=== PATIENT | female | born 1970 | race Caucasian/White ===

== ENCOUNTER → 2020-09-15 | Outpatient (CLI) | payer BC ==
--- NOTE | 2020-09-15 12:09 | MM ---
Reason for exam: screening (asymptomatic). Baseline mammogram. Physical Findings: Nurse did not find any significant physical abnormalities on exam. MG 3D Screening Mammo W/Cad Bilateral CC and MLO view(s) were taken. The breast tissue is heterogeneously dense. This may lower the sensitivity of mammography. Small heterogeneous group of microcalcifications adjacent to a spiculated 1cm mass. Distortion lower inner right breast zone B. These results were verbally communicated with the patient and result sheet given to the patient on 09/15/20. ASSESSMENT: Incomplete: need additional imaging evaluation, BI-RAD 0 RECOMMENDATION: Special view mammogram of both breasts.
--- NOTE | 2020-09-15 12:11 | MM ---
Reason for exam: additional evaluation requested from abnormal screening. Physical Findings: Breast exam preformed at baseline screening. MG 3D Work Up W/Cad YOGESH Bilateral LM view(s) were taken. Spot compression CC and spot compression MLO view(s) were taken of the right breast. CC with magnification and LM with magnification view(s) were taken of the left breast. The breast tissue is heterogeneously dense. This may lower the sensitivity of mammography. Left breast: spiculated 9mm mass upper outer quadrant 8cm from nipple. Adjacent group of pleomorphic calcifications. Right breast: Asymmetric density lower half of right breast 4.6cm from nipple. These results were verbally communicated with the patient and result sheet given to the patient on 09/15/20. ASSESSMENT: Incomplete: need additional imaging evaluation, BI-RAD 0 RECOMMENDATION: Ultrasound of both breasts. Manage patient on a clinical basis.
--- NOTE | 2020-09-15 12:15 | USB ---
Reason for exam: additional evaluation requested from abnormal screening. US Breast Workup Limited YOGESH Technologist: Umm Means Right limited breast ultrasound including focal area of concern, retroareolar and axilla demonstrates a 0.6 x 0.6 x 0.3cm mixed lesion at 4 o'clock, ultrasound core biopsy recommended. Left limited breast ultrasound including focal area of concern, retroareolar and axilla demonstrates a 0.5 x 0.4 x 0.2cm cystic lesion at 2 o'clock and a 0.8 x 0.8 x 0.4cm solid, vascular lesion at 3 o'clock, biopsy recommended. Left two site stereotactic core biopsy mass and calcifications. These results were verbally communicated with the patient and result sheet given to the patient on 09/15/20. ASSESSMENT: Highly suggestive of malignancy, BI-RAD 5 Suspicious, BI-RAD 4 abnormality in the right breast. Left breast finding is highly suggestive of malignancy, BI-RAD 5. RECOMMENDATION: Ultrasound core biopsy of the right breast. Stereotactic core biopsy of the left breast. (two sites on left breast) Called Dr. Brown's office with mammographic findings and has scheduled an appointment for the patient for 09/17/20 at 7:[address] Lugo. Ultrasound core biopsy scheduled for 10/07/20 at 10:30. Stereotactic core biopsy scheduled for 10/14/20 at 8:00. PRELIMINARY REPORT CALLED AND FAXED TO DR. LUGO ON 09/15/20.
== END | disposition home or self-care (01) ==
LOC: RADMAMWWP 07:02
PROVIDERS: ATTEND Obstetrics & Gynecology
DX: Z12.31 Encounter for screening mammogram for malignant neoplasm of breast (principal); N63.21 Unspecified lump in the left breast, upper outer quadrant; N60.02 Solitary cyst of left breast
CPT/HCPCS: 77062; 77063; 77066; 77067

== ENCOUNTER → 2020-09-17 | Outpatient (CLI) | payer BC ==
[2020-09-17 07:30] VITALS: BP 122/84; PULSE 91; RESP 16; TEMP 98.2
--- NOTE | 2020-09-17 08:08 | P.GSHP ---
History of Present Illness H&P Date: 09/17/20 Chief Complaint: abnormal mammogram and ultrasound both breast Kenyetta is a 49-year-old white female seen in consultation for Dr. Shady Núñez regarding bilateral mammographic abnormalities in her breast. She underwent a bilateral mammogram and [id number]. This revealed small head or rigidity escape of microcalcifications adjacent to spiculated 1 cm mass in the left breast. In the right breast there was some asymmetry noted. She subsequently underwent a diagnostic study of the breast which revealed in the left breast a spiculated mass in the upper outer quadrant as well as a group of pleomorphic calcifications. In the right breast there was some asymmetry noted. An ultrasound of both breasts were performed. Ultrasound in the right revealed a mixed lesion at the 4 o'clock position and on the left revealed the spiculated mass lesion. The recommendation as per radiology was for ultrasound core biopsy of the right breast, and after review with radiology stereotactic core biopsy of 2 sites in the left breast. The patient does not feel any lumps masses or nodules of concern in either breast. She is however complaining of bilateral breast pain. Patient states that she has been having the discomfort for several months. She believes it is most likely perimenopausal in nature. Her last menstrual period was approximately 3 months ago. She is not complaining of any nipple discharge or skin changes. The pain is deep bruise-like discomfort and is only present with palpation. She is not complaining of any recent infection or trauma in the breast. She has never had surgery on her breasts before. This is her first mammogram. The patient was having perimenopausal symptoms and was considering bioidentical hormone therapy. She was recommended to undergo a mammogram and this is the reason the mammogram was performed. Caffeine: 2 cups of coffee per day Nicotine: Negative Chocolate: Daily hormones: Is not using any at the present time Family history: Father: Lung cancer Hormonal history: Menarche: 12 , age at first : 26, breast fed: no periods irregular for the last 3 months BDP: no Surgical history: spleenectomy: trauma right ovary removed; cyst Medical History: none Social History: Nicotine: Former smoker stopped 15 years ago Alcohol: Rare Drugs: negative - Constitutional Constitutional: Denies chills, Denies fever - EENT Eyes: denies blurred vision, denies pain Ears: bilateral: decreased hearing, deny: tinnitus Ears, nose, mouth and throat: Denies headache, Denies sore throat - Breasts Breasts: bilateral: as per HPI - Cardiovascular Cardiovascular: Denies chest pain, Denies shortness of breath - Respiratory Respiratory: Denies cough, Denies 7 - Gastrointestinal Gastrointestinal: Denies abdominal pain, Denies diarrhea, Denies nausea, Denies vomiting - Genitourinary (Female) Genitourinary: Denies dysuria, Denies hematuria - Menstruation Menstruation: Reports cycle variable - Musculoskeletal Musculoskeletal: Denies myalgias - Integumentary Integumentary: Denies pruritus, Denies rash - Neurological Neurological: Denies numbness, Denies weakness - Psychiatric Psychiatric: Denies anxiety, Denies depression - Endocrine Endocrine: Denies fatigue, Denies weight change - Hematologic/Lymphatic Comment: none - Allergic/Immunologic Allergic/Immunologic: Reports as per HPI Past Medical History Past Medical History: No Reported History History of Any Multi-Drug Resistant Organisms: None Reported Additional Past Surgical History / Comment(s): Splenectomy 1988; right oophorectomy 2015 Past Anesthesia/Blood Transfusion Reactions: No Reported Reaction Past Psychological History: No Psychological Hx Reported Smoking Status: Former smoker Past Alcohol Use History: Rare Additional Past Alcohol Use History / Comment(s): Started smoking at age 21, stopped smoking at age 31 Past Drug Use History: None Reported Medications and Allergies Home Medications Medication Instructions Recorded Confirmed Type No Known Home Medications 09/17/20 09/17/20 History Allergies Allergy/AdvReac Type Severity Reaction Status Date / Time codeine Allergy Rash/Hives Unverified 09/17/20 07:23 Surgical - Exam Vital Signs Temp Pulse Resp BP Pulse Ox 98.2 F 91 16 122/84 100 09/17/20 07:25 09/17/20 07:25 09/17/20 07:25 09/17/20 07:25 09/17/20 07:25 BMI 26.6 - General well developed, well nourished, no distress - Eyes normal ocular movement - ENT no hearing loss, no congestion - Neck no masses, trachea midline - Respiratory normal expansion, normal respiratory effort, clear to auscultation - Cardiovascular Rhythm: regular Heart Sounds: normal: S1, S2 - Abdomen Abdomen: soft - Integumentary normal turgor - Neurologic no disoriented, no combative - Musculoskeletal normal gait, normal posture - Psychiatric oriented to time, oriented to person, oriented to place, speech is normal, memory intact breast exam: BRA: 38C inspection: Grade 2 ptosis bilaterally Palpation: right breast: Dense breast tissue, cystic breast changes, no dominant masses or nodules of concern Right axilla: No adenopathy of concern Left breast: Dense breast tissue, fibrocystic breast changes, no discrete dominant mass or nodule of concern appreciated Left axilla: No adenopathy of concern Results Bilateral mammogram and ultrasound reviewed with Dr. Childers Assessment and Plan Assessment: Impression: 1. Bilateral control radiographic abnormalities/recommend right breast ultrasound core biopsy left breast stereotactic core biopsy of 2 sites 2. Perimenopausal with mastodynia 3. Prior splenectomy Plan: 1. Ultrasound core biopsy right breast, stereotactic core biopsy 2 sites left breast 2. Follow up after results of biopsy 3. Mastodynia most likely related to hormonal changes secondary to menopause have discussed lifestyle modifications 4. At this time I would wait on hormonal supplementation until results of the biopsy 5. genetic testing Cc: Dr. Núñez, Dr. Brown
== END ==
LOC: WWCWWP 07:12
PROVIDERS: ATTEND Surgery
DX: N63.21 Unspecified lump in the left breast, upper outer quadrant (principal); N64.4 Mastodynia; N64.89 Other specified disorders of breast; Z87.891 Personal history of nicotine dependence; Z90.81 Acquired absence of spleen

== ENCOUNTER → 2020-10-14 | Day surgery (SDC) | payer BC ==
[2020-10-14 07:38] VITALS: RESP 16
--- NOTE | 2020-10-14 10:22 | USB ---
EXAMINATION TYPE: US biopsy breast VAD bilateral DATE OF EXAM: 10/14/2020 CLINICAL HISTORY: R92.8 Abnormal Imaging. TECHNIQUE: Ultrasound guided core biopsy of bilateral breasts. COMPARISON: 09/15/2020 FINDINGS: The procedure of ultrasound guided core biopsy was explained to the patient. Benefits, alternatives, and risks were discussed. An informed consent was then obtained. The patient was placed in supine positioning for imaging and for the procedure. The overlying skin was prepped and draped in usual sterile fashion. Lidocaine buffered with bicarbonate was used as anesthetic into the skin and subcutaneous tissue up to area of concern in the left breast at 3:00, zone BC. A skin mariano was made with a surgical scalpel.. Under ultrasound guidance, a Celero biopsy gun device was used to obtain 3 core samples. Following this, a biopsy clip was placed in lesion. A nodule at 4:00 at zone a and the right breast was sonographically identified. The overlying skin was prepped and draped in usual sterile fashion. Lidocaine buffered with bicarbonate was used as anesthetic into the skin and subcutaneous tissue up to area of concern in the right breast at 4:00, zone a. A skin mariano was made with surgical scalpel. Under ultrasound guidance, a Celero biopsy gun device was used to obtain 4 core samples. Following this, a biopsy clip was placed in lesion. The patient tolerated the procedure well without any immediate complication. The patient was kept in the radiology department for short stay after the procedure and then discharged home in stable condition. IMPRESSION: 1. Successful bilateral ultrasound-guided breast biopsies. Pathology results will follow. Pathology Results: Malignant A. 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 See Surgical Pathology Cancer Case Summary and comment. B. RIGHT BREAST, CORE BIOPSY: Fibrocystic change with apocrine metaplasia, focal microcalcification, adenosis and columnar cell change/hyperplasia. Focal usual ductal hyperplasia. Recommendation Surgical consult of the left breast. Follow up mammogram of the right breast in 6 months. GEOVANNYD
--- NOTE | 2020-10-14 10:27 | MM ---
BILATERAL DIGITAL DIAGNOSTIC POSTPROCEDURAL MAMMOGRAM REASON FOR EXAMINATION: Bilateral ultrasound guided biopsies with clips left in place COMPARISON: Ultrasound same date. Technique: Bilateral. craniocaudal and mediolateral oblique 2-D views were obtained digitally. FINDINGS: C (heterogeneously dense) The breasts are heterogeneously dense, which may obscure small masses. Post procedural clips are seen at the 4:00 region of the right breast at zone a 4 cm from the nipple. Post procedural biopsy clip at the left breast at 3:00, 7 cm from the nipple. IMPRESSION: 1. Biopsy marker clips are seen in each breast, respectively. Awaiting pathology results. Procedure related imaging
[2020-10-14 11:06] VITALS: BP 134/87; PULSE 71; TEMP 97.6
== END ==
LOC: RADMAMWWP 07:18
PROVIDERS: ATTEND Surgery
DX: C50.912 Malignant neoplasm of unspecified site of left female breast (principal); N60.81 Other benign mammary dysplasias of right breast; N62 Hypertrophy of breast; Z88.5 Allergy status to narcotic agent
CPT/HCPCS: 88305; 88342; 88341; 77066; 19083; 19084; A4648; J2001

== ENCOUNTER → 2020-10-21 | Outpatient (CLI) | payer BC ==
[2020-10-21 09:12] VITALS: BP 147/86; PULSE 58; RESP 16; TEMP 98.1
--- NOTE | 2020-10-21 10:28 | P.PN ---
Subjective Progress Note Date: 10/21/20 Principal diagnosis: Invasive ductal carcinoma left breast Kenyetta is a 50-year-old white female status post bilateral core biopsy performed on . Left breast revealed grade 2 invasive ductal carcinoma in situ associated with intermediate grade DCIS the right breast revealed fibrocystic change with apocrine metaplasia, focal microcalcification, adenosis, and columnar cell hyperplasia. The patient's radiographs were reviewed with Dr. Miner and a additional area of microcalcifications approximately 3-4 mm from the area biopsied was also identified. The patient is scheduled for bilateral MRI. The total length of the lesion is approximately 2 cm. An Oncotype is going to be sent. The lesion by verbal report is ER/NM positive and HER-2/honey negative. This would be a stage IA invasive ductal breast cancer. The patient tolerated the biopsy without difficulty. She states that her breast was sore following the procedure but this is improved. Objective - Vital Signs Vital signs: Vital Signs Temp 98.1 F 10/21/20 09:00 Pulse 58 L 10/21/20 09:00 Resp 16 10/21/20 09:00 BP 147/86 10/21/20 09:00 Pulse Ox 100 10/21/20 09:00 Intake & Output 10/20/20 10/21/20 10/21/20 18:59 06:59 18:59 Weight 74.843 kg - Constitutional General appearance: Present: average body habitus - EENT Eyes: Present: EOMI - Integumentary Integumentary Comment(s): Biopsy sites clean and dry with minimal ecchymosis no evidence of infection or hematoma Assessment and Plan Assessment: Impression: 1. Left breast invasive ductal carcinoma stage I a 2. Fibrocystic changes right breast 3. Patient status post splenectomy Plan: 1. Oncotype DX to be ordered 2. Awaiting genetic testing 3. Presentation of case at tumor board 4. Bilateral breast MRI Surgical options were discussed with the patient. These include lumpectomy plus radiation, mastectomy plus or minus reconstruction. They also include sentinel node biopsy possible axillary node dissection. Risks and benefits of these procedures were discussed in detail with the patient and her . Additionally the need for radiation therapy and medical oncology were discussed with the patient and her . At this time they are going to meet with Dr. Boggs from radiation oncology. Encounter: 1 hour 15 minutes CC: Dr. Brown, Dr. Núñez
== END ==
LOC: WWCWWP 08:43
PROVIDERS: ATTEND Surgery
DX: C50.911 Malignant neoplasm of unspecified site of right female breast (principal); N60.11 Diffuse cystic mastopathy of right breast; Z90.81 Acquired absence of spleen; Z17.0 Estrogen receptor positive status [ER+]; Z88.5 Allergy status to narcotic agent

== ENCOUNTER → 2020-11-01 | Outpatient (CLI) | payer BC ==
--- NOTE | 2020-11-03 09:24 | BMR ---
EXAMINATION TYPE: MR breast BILAT wo/w con DATE OF EXAM: 11/01/2020 COMPARISON: Bilateral 3-D screening mammogram September 15, 2020 BI-RADS 0. Bilateral diagnostic 3-D mamm ogram same day BI-RADS 0. Diagnostic bilateral breast ultrasound same day BI-RADS 5 left breast. BI-R ADS 4 right breast HISTORY: Breast cancer on ultrasound-guided biopsy October 14, 2020 left breast invasive ductal carcinoma . Right breast benign biopsy October 14, 2020 TECHNIQUE: A series of fat and water weighted images in the long and short axis views of both breasts are obtained in conjunction with dynamic contrast MRI with subtraction technique. The patient was i njected with 7 mL intravenous Gadavist gadolinium contrast. Three-dimensional and additional postpr ocessing imaging is created on independent workstation and reviewed during official interpretation of this study. FINDINGS: Heterogeneously dense fibroglandular tissue bilaterally is redemonstrated. Coronal T2 weighted images show normal bilateral axillary lymph nodes. Axial T2-weighted images show no significant cysts or fluid collections. Delayed dynamic postcontrast imaging shows no suspicious internal mammary adenopathy. Dynamic postcon trast imaging shows severe bilateral background enhancement which is noted to lower sensitivity. With regards to the right breast. No abnormal skin thickening is seen. No pathologic enhancement or e nhancing masses are clearly identified. Artifact from biopsy clip in the slightly medial and inferior anterior to middle noted image 296 series 801. No concerning enhancement or enhancing masses at this level. The chest wall is intact. Diffuse glandular benign progressive enhancement noted. With regards to the left breast. There is artifact from biopsy clip seen image 346 series 801 in the middle to posterior depth outer portion 3:00 level. Just superior and medial to this adjacent to clip there is a roughly 6 mm lobulated enhancing lesion corresponding to ultrasound biopsy proven maligna ncy 3:00 position left breast. No additional pathologic enhancement or enhancing masses. Background s evere granular benign progressive enhancement noted. Chest wall is intact. IMPRESSION: Some limitation due to severe background enhancement. No MRI evidence for invasive malign trip in the right breast. Biopsy-proven cancer left breast. No multicentric malignancy identified. BI-RADS 2 benign findings right breast. BI-RADS 6 biopsy-proven cancer left breast. Recommendation: Surgical follow-up.
== END | disposition home or self-care (01) ==
LOC: RADMRIMAIN 20:44
PROVIDERS: ATTEND Surgery
DX: C50.912 Malignant neoplasm of unspecified site of left female breast (principal)
CPT/HCPCS: 77049; C8937; A9585

== ENCOUNTER → 2020-11-04 | Outpatient (CLI) | payer BC ==
[2020-11-04 12:35] VITALS: BP 127/85; PULSE 72; TEMP 97.9
--- NOTE | 2020-11-04 12:57 | P.PN ---
Subjective Progress Note Date: 11/04/20 Principal diagnosis: Left breast stage IA invasive ductal carcinoma Kenyetta is a 49-year-old white female seen in consultation for Dr. Shady Núñez regarding bilateral mammographic abnormalities in her breast. She underwent a bilateral mammogram and [id number]. This revealed small head or rigidity escape of microcalcifications adjacent to spiculated 1 cm mass in the left breast. In the right breast there was some asymmetry noted. She subsequently underwent a diagnostic study of the breast which revealed in the left breast a spiculated mass in the upper outer quadrant as well as a group of pleomorphic calcifications. In the right breast there was some asymmetry noted. An ultrasound of both breasts were performed. Ultrasound in the right revealed a mixed lesion at the 4 o'clock position and on the left revealed the spiculated mass lesion. The recommendation as per radiology was for ultrasound core biopsy of the right breast, and after review with radiology stereotactic core biopsy of 2 sites in the left breast. The patient does not feel any lumps masses or nodules of concern in either breast. She is however complaining of bilateral breast pain. Patient states that she has been having the discomfort for several months. She believes it is most likely perimenopausal in nature. She is not complaining of any nipple discharge or skin changes. The pain is deep bruise-like discomfort and is only present with palpation. She is not complaining of any recent infection or trauma in the breast. She has never had surgery on her breasts before. This is her first mammogram. The patient was having perimenopausal symptoms and was considering bioidentical hormone therapy. She was recommended to undergo a mammogram and this is the reason the mammogram was performed. Bilateral breast core biopsies were performed on 520 721. Left breast revealed invasive ductal carcinoma grade 2 which was ER/OK positive HER-2/honey negative. Right breast core biopsy on the same date revealed fibrocystic change with apocrine metaplasia. The patient subsequently underwent a Oncotype DX test the score was 24 this lady's a 10% risk of distant recurrence at 9 years and group B average absolute chemotherapy benefit of less than 1%. She also underwent g enetic testing which was negative. She underwent a bilateral breast MRI which revealed only the area of concern in the left breast. The disease was not noted to be multifocal nor was it noted to have anything of concern in the right breast. Caffeine: 2 cups of coffee per day Nicotine: Negative Chocolate: Daily hormones: Is not using any at the present time Family history: Father: Lung cancer Hormonal history: Menarche: 12 , age at first : 26, breast fed: no periods irregular for the last 3 months BDP: no Surgical history: spleenectomy: trauma right ovary removed; cyst Medical History: none Social History: Nicotine: Former smoker stopped 15 years ago Alcohol: Rare Drugs: negative - Constitutional Constitutional: Denies chills, Denies fever - EENT Eyes: denies blurred vision, denies pain Ears: bilateral: decreased hearing, deny: tinnitus Ears, nose, mouth and throat: Denies headache, Denies sore throat - Breasts Breasts: bilateral: as per HPI - Cardiovascular Cardiovascular: Denies chest pain, Denies shortness of breath - Respiratory Respiratory: Denies cough - Gastrointestinal Gastrointestinal: Denies abdominal pain, Denies diarrhea, Denies nausea, Denies vomiting - Genitourinary (Female) Genitourinary: Denies dysuria, Denies hematuria - Menstruation Menstruation: Reports cycle variable - Musculoskeletal Musculoskeletal: Denies myalgias - Integumentary Integumentary: Denies pruritus, Denies rash - Neurological Neurological: Denies numbness, Denies weakness - Psychiatric Psychiatric: Denies anxiety, Denies depression - Endocrine Endocrine: Denies fatigue, Denies weight change - Hematologic/Lymphatic Comment: none - Allergic/Immunologic Allergic/Immunologic: Reports as per HPI Objective - Vital Signs Vital signs: Vital Signs Temp 97.9 F 11/04/20 12:30 Pulse 72 11/04/20 12:30 Resp BP 127/85 11/04/20 12:30 Pulse Ox 99 11/04/20 12:30 Intake & Output 11/03/20 11/04/20 11/04/20 18:59 06:59 18:59 Weight 74.843 kg - Exam BMI 27.5 - Constitutional General appearance: Present: average body habitus - EENT Eyes: Present: EOMI ENT: Present: hearing grossly normal - Neck Neck: Present: normal ROM - Respiratory Respiratory: bilateral: CTA - Cardiovascular Heart sounds: normal: S1, S2 - Integumentary Integumentary: Present: normal turgor - Musculoskeletal Musculoskeletal: Present: gait normal - Psychiatric Psychiatric: Present: A&O x's 3, appropriate affect, intact judgment & insight - Additional findings Additional findings: Breast examination: Inspection: Grade 2 ptosis bilaterally Operation: Right breast: Multiple positional exam fibrocystic changes, no dominant masses or nodules of concern Right axilla: No adenopathy of concern Left breast: Multiple positional exam fibrocystic changes, no dominant masses or nodules of concern Left axilla: No adenopathy of concern Assessment and Plan Assessment: Impression: 1. Left breast stage IA invasive ductal carcinoma 2. Fibrocystic breast changes 3. Bilateral grade 2 ptosis 4. Oncotype DX 24 5. Bilateral breast MRI no additional areas of concern in either breast 6. Genetic testing negative The above was discussed with the patient, her , and her daughter. The patient would like to proceed with left breast lumpectomy, she is not interested in a mastopexy. We will do an onco-plastic tissue transfer. She will have sentinel node biopsy and possible axillary node dissection. Plan: 1. Presentation of case at tumor board 2. Left breast needle localization area bracketed as there are some calcifications present as well, excisional lumpectomy, sentinel node injection, sentinel node biopsy, possible axillary node dissection, possible bronchoplasty tissue transfer
== END ==
LOC: WWCWWP 11:48
PROVIDERS: ATTEND Surgery
DX: C50.412 Malignant neoplasm of upper-outer quadrant of left female breast (principal); N60.11 Diffuse cystic mastopathy of right breast; N60.12 Diffuse cystic mastopathy of left breast; N64.81 Ptosis of breast; Z17.0 Estrogen receptor positive status [ER+]; Z87.891 Personal history of nicotine dependence; Z88.5 Allergy status to narcotic agent

== ENCOUNTER 2020-11-30 07:02 | Day surgery (SDC) | payer BC ==
[2020-11-29 08:59] VITALS: BMI 27.4
[~2020-11-30 07:02] MED LIST: DEXAMETHASONE SOD PHOSPHATE 4 MG/ML 1 ML VIAL IV ONE; HEPARIN SODIUM,PORCINE/PF 5,000 UNIT/0.5 ML SYRINGE SQ PRN; LACTATED RINGERS 1,000 ML IV SCH; LIDOCAINE 1% (10MG/ML) FOR IV START INTRADERMA PRN; ONDANSETRON 4 MG/2 ML VIAL IVP ONE; Pre Op ABX Message 1 EACH MISC MISCELLANE ONE; SCOPOLAMINE 1.5MG/72HR PATCH TRANSDERM ONE; fentaNYL (PF) 50 MCG/ML 2 ML AMP IV PRN
[2020-11-30] MEDS ORDERED: ALPRAZolam 0.5 MG TAB PO STA (07:59)
[2020-11-30] MEDS ORDERED: LIDOCAINE 1% INJ 10MG/ML (20 ML MDV) SQ ONE (08:38)
--- NOTE | 2020-11-30 09:09 | P.NAPBC ---
NAPBC Queries - NAPBC Queries Was patient's case review presented at [facility] tumor board? If no, comment.: Yes Was patient's pathology reviewed at [facility]? If no, comment.: Yes Was breast conservation surgery offered? If no, comment.: Yes Was sentinel node biopsy offered? If no, comment.: Yes Was diagnosis confirmed by percutaneous core biopsy? If no, comment.: Yes Is patient mastectomy patient?: No Was a preop referral to reconstructive surgeon offered?: No Clinical Stage: stage IA
[2020-11-30] MEDS ORDERED: ROCURONIUM 10 MG/ML (5 ML VIAL) IV ONE (09:33)
[2020-11-30] MEDS ORDERED: PROPOFOL 10 MG/ML 20 ML VIAL IV ONE (09:33)
[2020-11-30] MEDS ORDERED: SUCCINYLCHOLINE CHLORIDE 100 MG/5 ML SYR IV ONE (09:33)
[2020-11-30] MEDS ORDERED: HYDROmorphone (PF) 1 MG/ML ONE (09:33)
[2020-11-30] MEDS ORDERED: fentaNYL (PF) 50 MCG/ML 2 ML AMP ONE (09:33)
[2020-11-30] MEDS ORDERED: MIDAZOLAM 2 MG/2 ML VIAL ONE (09:33)
[2020-11-30] MEDS ORDERED: LIDOCAINE 1% INJ 10MG/ML (20 ML MDV) ONE (09:33)
[2020-11-30] MEDS ORDERED: LACTATED RINGERS 1,000 ML IV ONE (10:20)
--- NOTE | 2020-11-30 10:23 | NM ---
EXAMINATION TYPE: NM sentinel node injection DATE OF EXAM: 11/30/2020 COMPARISON: NONE HISTORY: Left Breast cancer, C50.512 TECHNIQUE AND FINDINGS: The procedure of sentinel lymph node injection was explained to the patient. The benefits, alternatives, and risks were discussed. An informed consent was then obtained. Overlying skin is cleaned with sterile alcohol. Following this, 521 uCi Tc99m Tilmanocept was inject ed in the upper outer aspect of the left nipple intradermally. The patient tolerated the procedure well without any immediate complication. The patient was kept in the radiology department for short stay after the procedure and then taken to surgery for surgical p rocedure what is presumed intraoperative gamma probe will be used for sentinel lymph node detection. IMPRESSION: Left breast radiotracer injection for sentinel node localization as above.
--- NOTE | 2020-11-30 11:26 | MM ---
2 views left breast specimen INDICATION: Breast neoplasm COMPARISON: 10/14/2020 FINDINGS: 2 views of the left breast specimen demonstrate distal localization wires, breast mass with associated breast clip and calcifications. For full details please see surgical report. IMPRESSION: 2 views of the left breast specimen demonstrate distal localization wires, breast mass with associated breast clip and calcifications. For full details please see surgical report. Pathology Results: Malignant A. LEFT AXILLARY SENTINEL LYMPH NODE, BIOPSY: Four lymph nodes negative for metastasis. CK7 and ANGIE immunostains are confirmatory (controls appropriate). B. 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 See Surgical Pathology Cancer Case Summary. Recommendation Surgical consult of the left breast. Follow up per oncologist/surgeon recommended. MTDD
--- NOTE | 2020-11-30 11:45 | MM ---
EXAMINATION TYPE: MG pre op needle loc LT DATE OF EXAM: 11/30/2020 COMPARISON: 10/14/2020 CLINICAL HISTORY: Left breast DCIS TECHNIQUE: Needle localization with wire placement and lumpectomy of area of concern in the left breast. FINDINGS: The procedure of needle localization with wire placement and than surgical excision was explained to the patient. Benefits, alternatives, and risks were discussed. An informed consent was then obtained. The shortest pathway for procedure was chosen. Shortest pathway was lateral approach. The overlying skin was prepped and draped in usual sterile fashion. Lidocaine buffered with bicarbonate was used as anesthetic into the skin and subcutaneous tissue up to the level of mass with clip. A 7 cm needle was used. It was placed via a lateral approach under mammographic guidance. Lidocaine buffered with bicarbonate was used as anesthetic into the skin and subcutaneous tissue up to the adjacent calcifications. A 9 cm needle was used. It was placed via a lateral approach under mammographic guidance. Subsequent 90 degrees mammogram show the needles to be in satisfactory position relative to the targeted area. At this point, wires were placed and the needles were withdrawn. The wires were fixed to patient's skin. Images were marked for surgeon. The patient tolerated the procedure well without any immediate complication. The patient was kept in the radiology department for short stay after the procedure and then taken to surgery for lumpectomy. IMPRESSION: Successful, uncomplicated needle localization with 2 wire placement for lumpectomy of left breast mass and surgical excision of adjacent calcifications in the left breast, full pathology results to follow. Pathology Results: Malignant A. LEFT AXILLARY SENTINEL LYMPH NODE, BIOPSY: Four lymph nodes negative for metastasis. CK7 and ANGIE immunostains are confirmatory (controls appropriate). B. 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 See Surgical Pathology Cancer Case Summary. Recommendation Surgical consult of the left breast. Follow up per oncologist/surgeon recommended. CANDE
--- NOTE | 2020-11-30 11:50 | P.OP ---
Date of Procedure: 11/30/20 Preoperative Diagnosis: Left breast invasive ductal carcinoma Postoperative Diagnosis: Same Procedure(s) Performed: Left breast needle localization lumpectomy, oncho-plastic tissue transfer 70 cm, sentinel node biopsy Anesthesia: ROS Surgeon: Becka Lugo Estimated Blood Loss (ml): 10 IV fluids (ml): 500 Pathology: other ([place] node biopsy, lumpectomy breast tissue) Condition: stable Disposition: same day Indications for Procedure: Biopsy-proven left breast cancer Operative Findings: Dense breast tissue Description of Procedure: Kenyetta is a 50-year-old white female with a biopsy-proven left breast invasive ductal carcinoma. She has opted for a left breast lumpectomy and sentinel node biopsy. We will also do an onco- plastic tissue transfer. The patient was first seen in the radiology department. Needle localization of the area of concern was performed as well as sentinel node injection. The patient was then brought to the operative suite. Following induction of anesthesia the axilla was interrogated and there was noted to be increased radioactivity in the axilla. Therefore,no methylene blue was injected. The left breast and axilla were prepped and draped in a sterile fashion. Using the neoprobe for orientation an incision was made in the axilla. This was carried down into the deep tissues where a radioactive lymph node was identified. This was excised using the electrocautery device and harmonic scalpel. The 10 second count on the lymph node was 4127. The background axillary 10 second count was 37. The wound was well irrigated. After we assured that hemostasis was attained the deep tissues were closed using 3-0 Vicryl suture. The skin was closed using 4-0 Monocryl. Following this the breast was approached. 2 needles had been placed to bracket the area of concern. A lateral skin incision was made. This was carried down to both of the needles and surrounding tissue was removed. The lumpectomy specimen was 7 cm x 6 cm. The wound was well irrigated. Hemostasis was attained. Clips were placed to fany the cavity. The specimen was painted for orientation. Radiograph of the specimen revealed the area of concern had been removed. The superior pedicle was mobilized 6 cm x 2 cm, the inferior pedicle was mobilized 8 centimeters by 2.5 cm. Total tissue mobilization was 78 cm. The superior and inferior pedicles were then brought to gather using 3-0 Vicryl suture. The incision was closed in layers. The skin was reapproximated using 4-0 Monocryl. The patient tolerated the procedure in stable condition. All instrument and sponge counts were correct at the end of the case.
--- NOTE | 2020-11-30 11:52 | P.DS ---
Providers Attending physician: Becka Lugo Primary care physician: Shady Núñez Plan - Discharge Summary Discharge Rx Participant: No New Discharge Prescriptions: No Action Ibuprofen [Motrin] 600 mg PO Q12H PRN PRN Reason: Pain Discharge Medication List Ibuprofen [Motrin] 600 mg PO Q12H PRN 10/04/20 [History] Follow up Appointment(s)/Referral(s): Becka Lugo MD [STAFF PHYSICIAN] - 1 Week Patient Instructions/Handouts: *Surgery [facility] - Scopalamine Patch Instructions Activity/Diet/Wound Care/Special Instructions: do not drive fro 24 hours after discharge, or if taking narcotic pain medication may shower after 48 hours wear bra at all times Discharge Disposition: HOME SELF-CARE
[2020-11-30 12:05] VITALS: TEMP 97.4
[2020-11-30 12:48] VITALS: RESP 18
[2020-11-30 13:00] VITALS: BP 148/84; PULSE 67
== END 2020-11-30 13:31 | disposition home or self-care (01) ==
LOC: OR 07:02
PROVIDERS: ATTEND Surgery
DX: C50.912 Malignant neoplasm of unspecified site of left female breast (principal); D05.12 Intraductal carcinoma in situ of left breast; Z88.5 Allergy status to narcotic agent; Z87.891 Personal history of nicotine dependence; Z90.81 Acquired absence of spleen
CPT/HCPCS: 19301; 38525; 81025; 88342; 88307; 88341; 76098; 19281; 38792; A9520; J2250; J1100; J0690; J2405; J2001; J3010; J1170; J0330; J2704; J1644

== ENCOUNTER → 2020-12-10 | Outpatient (CLI) | payer BC ==
--- NOTE | 2020-12-10 11:57 | P.PN ---
Progress Note - Text Progress Note Date: 12/10/20 Kenyetta is a 50-year-old white female status post left breast lumpectomy [place] [id number]. She is doing well postoperatively. 4 lymph nodes were removed all negative for metastatic disease. Lumpectomy margins are negative. The patient is doing well at this time. Physical examination: Lungs: Clear Heart: Regular rate and rhythm Incision: Clean and dry ecchymosis at the medial aspect of the breast Axillary incision clean and dry Plan: 1. Remove sutures Steri-Strips applied 2. Follow-up medical oncology 3. Follow-up radiation oncology Cc: Dr. Núñez, Dr. Brown
[2020-12-10 12:03] VITALS: BP 120/87; PULSE 64; RESP 18; TEMP 97.8
== END ==
LOC: WWCWWP 11:36
PROVIDERS: ATTEND Surgery
DX: Z09 Encounter for follow-up examination after completed treatment for conditions other than malignant neoplasm (principal); Z98.890 Other specified postprocedural states; Z88.5 Allergy status to narcotic agent

== ENCOUNTER → 2020-12-23 | Outpatient (CLI) | payer BC ==
[2020-12-23 07:53] VITALS: BP 145/94; PULSE 80; RESP 18; TEMP 97.8
--- NOTE | 2020-12-23 08:35 | P.PN ---
Progress Note - Text Progress Note Date: 12/23/20 Kenyetta is a 50-year-old white female status post left breast lumpectomy and left axilla [place] [id number]. Postprocedure she did well until approximately 2 days ago when she noticed some itching the lateral aspect of her left breast. She stated that the area became somewhat flat as well. She does not complain of any pain. She did take Benadryl with minimal relief of the itching. She is does not have any rash or itching at the places on her body. She has not had any fever or chills. She has not had any drainage or problems with wound healing. Physical examination: Lungs: Clear Heart: Regular rate and rhythm Left breast: Incision axilla and breast clean and dry, and the lateral aspect of the breast there is some maculopapular rash which extends up towards the incision. This is nontender but it is erythematous. Impression: 1. ? early cellulitis 2. ? ALLERGIC reaction Plan: 1. Bactrim double strength 1 by mouth twice a day for 10 days 2. Patient to call if any changes 3. Appointment with dermatology 4. follow up in 1 week or sooner if any problesms
== END ==
LOC: WWCWWP 07:23
PROVIDERS: ATTEND Surgery
DX: Z09 Encounter for follow-up examination after completed treatment for conditions other than malignant neoplasm (principal); Z98.890 Other specified postprocedural states

== ENCOUNTER → 2021-04-07 | Outpatient (CLI) | payer BC ==
[2021-04-07 12:03] VITALS: BP 133/90; PULSE 88; RESP 18; TEMP 97.8
--- NOTE | 2021-04-07 12:34 | P.PN ---
Subjective Progress Note Date: 04/07/21 Principal diagnosis: left breast stage IA invasive ductal cancer Left breast stage IA invasive ductal carcinoma Kenyetta is a 49-year-old white female seen in consultation for Dr. Shady Núñez regarding bilateral mammographic abnormalities in her breast. She underwent a bilateral mammogram on . This revealed microcalcifications adjacent to spiculated 1 cm mass in the left breast. In the right breast there was some asymmetry noted. She subsequently underwent a diagnostic study of the breast which revealed in the left breast a spiculated mass in the upper outer quadrant as well as a group of pleomorphic calcifications. In the right breast there was some asymmetry noted. An ultrasound of both breasts were performed. Ultrasound in the right revealed a mixed lesion at the 4 o'clock position and on the left revealed the spiculated mass lesion. The recommendation as per radiology was for ultrasound core biopsy of the right breast, and after review with radiology stereotactic core biopsy of 2 sites in the left breast. The patient does not feel any lumps masses or nodules of concern in either breast. She was however complaining of bilateral breast pain. Patient stated that she has been having the discomfort for several months. She believes it is most likely perimenopausal in nature. She is not complaining of any nipple discharge or skin changes. The pain is deep bruise-like discomfort and is only present with palpation. She is not complaining of any recent infection or trauma in the breast. She has never had surgery on her breasts before. This is her first mammogram. The patient was having perimenopausal symptoms and was considering bioidentical hormone therapy. She was recommended to undergo a mammogram and this is the reason the mammogram was performed. Bilateral breast core biopsies were performed on . Left breast revealed invasive ductal carcinoma grade 2 which was ER/HI positive HER-2/honey negative. Right breast core biopsy on the same date revealed fibrocystic change with apocrine metaplasia. The patient subsequently underwent a Oncotype DX test the score was 24 this lady's a 10% risk of distant recurrence at 9 years and absolute chemotherapy benefit of less than 1%. She also underwent genetic te sting which was negative. She underwent a bilateral breast MRI which revealed only the area of concern in the left breast. The disease was not noted to be multifocal nor was it noted to have anything of concern in the right breast. The patient underwent a left breast lumpectomy and SNB on 11-30-20. Tumor size 1 cm, margins negative and 4 nodes all negative. She completed radiation therapy in [place], 20 treatments. She chose not to do any hormone therapy. She was going to have letrazole. Caffeine: 2 cups of coffee per day Nicotine: Negative Chocolate: Daily hormones: Is not using any at the present time Family history: Father: Lung cancer Hormonal history: Menarche: 12 , age at first : 26, breast fed: no periods irregular for the last 3 months BDP: no Surgical history: spleenectomy: trauma right ovary removed; cyst Medical History: none Social History: Nicotine: Former smoker stopped 15 years ago Alcohol: Rare Drugs: negative - Constitutional Constitutional: Denies chills, Denies fever - EENT Eyes: denies blurred vision, denies pain Ears: bilateral: decreased hearing, deny: tinnitus Ears, nose, mouth and throat: Denies headache, Denies sore throat - Breasts Breasts: bilateral: as per HPI - Cardiovascular Cardiovascular: Denies chest pain, Denies shortness of breath - Respiratory Respiratory: Denies cough - Gastrointestinal Gastrointestinal: Denies abdominal pain, Denies diarrhea, Denies nausea, Denies vomiting - Genitourinary (Female) Genitourinary: Denies dysuria, Denies hematuria - Menstruation Menstruation: Reports cycle variable - Musculoskeletal Musculoskeletal: Denies myalgias - Integumentary Integumentary: Denies pruritus, Denies rash - Neurological Neurological: Denies numbness, Denies weakness - Psychiatric Psychiatric: Denies anxiety, Denies depression - Endocrine Endocrine: Denies fatigue, Denies weight change - Hematologic/Lymphatic Comment: none - Allergic/Immunologic Allergic/Immunologic: Reports as per HPI Objective - Vital Signs Vital signs: Vital Signs Temp 97.8 F 04/07/21 11:59 Pulse 88 04/07/21 11:59 Resp 18 04/07/21 11:59 BP 133/90 04/07/21 11:59 Pulse Ox 99 04/07/21 11:59 Intake & Output 04/06/21 04/07/21 04/07/21 18:59 06:59 18:59 Weight 77.111 kg - Exam BMI 28.3 - Constitutional General appearance: Present: cooperative - EENT Eyes: Present: EOMI ENT: Present: hearing grossly normal - Neck Neck: Present: normal ROM - Respiratory Respiratory: bilateral: CTA - Cardiovascular Rhythm: regular Heart sounds: normal: S1, S2 - Gastrointestinal General gastrointestinal: Present: soft - Integumentary Integumentary: Present: normal turgor - Musculoskeletal Musculoskeletal: Present: gait normal - Psychiatric Psychiatric: Present: A&O x's 3, appropriate affect, intact judgment & insight - Additional findings Additional findings: Breast Exam: BRA: 38C Inspection: post op changes left breast, bilateral grade 2 ptosis Palpation: Right breast: Multi-positional exam fibrocystic changes no dominant masses or nodules of concern Right axilla: No adenopathy of concern Left breast: Multi-positional exam fibrocystic changes, postoperative and postradiation changes no evidence of recurrence Left axilla: No adenopathy of concern Assessment and Plan Assessment: Impression: 1. Stage IA left breast invasive ductal carcinoma no evidence of recurrence 2. Patient completed radiation therapy 3. Patient recommended for hormone therapy which she has declined at this time we'll discuss with medical oncology Plan: 1. Bilateral mammogram in August with physician exam at that time 2. follow up in three months for breast exam CC: Dr. Núñez
== END ==
LOC: WWCWWP 11:33
PROVIDERS: ATTEND Surgery
DX: Z08 Encounter for follow-up examination after completed treatment for malignant neoplasm (principal); Z85.3 Personal history of malignant neoplasm of breast; Z92.3 Personal history of irradiation; Z87.891 Personal history of nicotine dependence

== ENCOUNTER → 2021-06-30 | Outpatient (CLI) | payer BC ==
[2021-06-30 11:42] VITALS: BP 175/95; PULSE 99; RESP 16; TEMP 97.5
--- NOTE | 2021-06-30 12:12 | P.PN ---
Subjective Progress Note Date: 06/30/21 Principal diagnosis: left breast stage IA invasive ductal cancer left breast stage IA invasive ductal cancer Left breast stage IA invasive ductal carcinoma Kenyetta is a 50-year-old white female seen in consultation for Dr. Shady Núñez regarding bilateral mammographic abnormalities in her breast. She underwent a bilateral mammogram on . This revealed microcalcifications adjacent to spiculated 1 cm mass in the left breast. In the right breast there was some asymmetry noted. She subsequently underwent a diagnostic study of the breast which revealed in the left breast a spiculated mass in the upper outer quadrant as well as a group of pleomorphic calcifications. In the right breast there was some asymmetry noted. An ultrasound of both breasts were performed. Ultrasound in the right revealed a mixed lesion at the 4 o'clock position and on the left revealed the spiculated mass lesion. The recommendation as per radiology was for ultrasound core biopsy of the right breast, and after review with radiology stereotactic core biopsy of 2 sites in the left breast. The patient does not feel any lumps masses or nodules of concern in either breast. She was however complaining of bilateral breast pain. Patient stated that she has been having the discomfort for several months. She believes it is most likely perimenopausal in nature. She is not complaining of any nipple discharge or skin changes. The pain is deep bruise-like discomfort and is only present with palpation. She is not complaining of any recent infection or trauma in the breast. She has never had surgery on her breasts before. This is her first mammogram. The patient was having perimenopausal symptoms and was considering bioidentical hormone therapy. She was recommended to undergo a mammogram and this is the reason the mammogram was performed. Bilateral breast core biopsies were performed on . Left breast revealed invasive ductal carcinoma grade 2 which was ER/FL positive HER-2/honey negative. Right breast core biopsy on the same date revealed fibrocystic change with apocrine metaplasia. The patient subsequently underwent a Oncotype DX test the score was 24 this lady's a 10% risk of distant recurrence at 9 years and absolute chemotherapy benefit of less than 1%. She also underwent genetic testing which was negative. She underwent a bilateral breast MRI which revealed only the area of concern in the left breast. The disease was not noted to be multifocal nor was it noted to have anything of concern in the right breast. The patient underwent a left breast lumpectomy and SNB on 11-30-20. Tumor size 1 cm, margins negative and 4 nodes all negative. She completed radiation therapy in [place], 20 treatments. She chose not to do any hormone therapy. She was going to have letrazole. 06-30-21 She does not complain of any new lumps masses or nodules of concern in either breast. Her last bilateral mammogram was on 10-14-20. She completed her radiation therapy in February 2021. She has chosen not to do hormone therapy. Caffeine: 2 cups of coffee per day Nicotine: Negative Chocolate: Daily hormones: Is not using any at the present time Family history: Father: Lung cancer Hormonal history: Menarche: 12 , age at first : 26, breast fed: no periods irregular for the last 3 months BDP: no Surgical history: spleenectomy: trauma right ovary removed; cyst Medical History: none Social History: Nicotine: Former smoker stopped 15 years ago Alcohol: Rare Drugs: negative - Constitutional Constitutional: Denies chills, Denies fever - EENT Eyes: denies blurred vision, denies pain Ears: bilateral: decreased hearing, deny: tinnitus Ears, nose, mouth and throat: Denies headache, Denies sore throat - Breasts Breasts: bilateral: as per HPI - Cardiovascular Cardiovascular: Denies chest pain, Denies shortness of breath - Respiratory Respiratory: Denies cough - Gastrointestinal Gastrointestinal: Denies abdominal pain, Denies diarrhea, Denies nausea, Denies vomiting - Genitourinary (Female) Genitourinary: Denies dysuria, Denies hematuria - Menstruation Menstruation: Reports cycle variable - Musculoskeletal Musculoskeletal: Denies myalgias - Integumentary Integumentary: Denies pruritus, Denies rash - Neurological Neurological: Denies numbness, Denies weakness - Psychiatric Psychiatric: Denies anxiety, Denies depression - Endocrine Endocrine: Denies fatigue, Denies weight change - Hematologic/Lymphatic Comment: none - Allergic/Immunologic Allergic/Immunologic: Reports as per HPI Objective - Vital Signs Vital signs: Vital Signs Temp 97.5 F L 06/30/21 11:38 Pulse 99 06/30/21 11:38 Resp 16 06/30/21 11:38 BP 175/95 06/30/21 11:38 Pulse Ox Intake & Output 06/29/21 06/30/21 06/30/21 18:59 06:59 18:59 Weight 77.111 kg - Exam BMI 28.3 - Constitutional General appearance: Present: cooperative - EENT Eyes: Present: EOMI - Neck Neck: Present: normal ROM - Respiratory Respiratory: bilateral: CTA - Cardiovascular Rhythm: regular Heart sounds: normal: S1, S2 - Gastrointestinal General gastrointestinal: Present: soft - Integumentary Integumentary: Present: normal turgor - Musculoskeletal Musculoskeletal: Present: gait normal - Psychiatric Psychiatric: Present: A&O x's 3, appropriate affect, intact judgment & insight - Additional findings Additional findings: Breast Exam: BRA: 38B inspection: Postop changes left breast/bilateral grade 2 ptosis Palpation: Right breast: Multi-positional exam fibrocystic changes no dominant masses or nodules of concern Right axilla: No adenopathy of concern Left breast: Post radiation and postop changes scar tissue at lateral aspect of the breast, no dominant masses or nodules of concern Left axilla: No adenopathy of concern Assessment and Plan Assessment: Impression: spleenectomy: trauma right ovary removed; cyst left breast stage IA invasive ductal cancer ? HTN patient has opted not to use hormonal therapy she did not have chemotherapy Plan: 1. bilateral mammogram September 2021 with appointment 2. Discussed hormone therapy and again at this time the patient has declined Cc: Dr. Núñez
== END ==
LOC: WWCWWP 11:30
PROVIDERS: ATTEND Surgery
DX: C50.911 Malignant neoplasm of unspecified site of right female breast (principal); Z17.0 Estrogen receptor positive status [ER+]; Z98.890 Other specified postprocedural states; Z87.891 Personal history of nicotine dependence; Z90.81 Acquired absence of spleen; Z90.721 Acquired absence of ovaries, unilateral; Z88.5 Allergy status to narcotic agent

== ENCOUNTER → 2021-09-16 | Outpatient (CLI) | payer BC ==
--- NOTE | 2021-09-16 11:44 | MM ---
Reason for exam: additional evaluation requested from prior study. Last mammogram was performed 11 months ago. History: Patient has history of breast cancer at age 50. Malignant MG pre op needle loc LT of the left breast, November 30, 2020. Lumpectomy of the left breast, November 30, 2020. Malignant US biopsy breast VAD LT of the left breast, October 14, 2020. Benign US biopsy breast VAD RT of the right breast, October 14, 2020. Physical Findings: A clinical breast exam by your physician is recommended on an annual basis and results should be correlated with mammographic findings. MG 3D Diag Mammo W/Cad YOGESH Bilateral CC and MLO view(s) were taken. Prior study comparison: October 14, 2020, bilateral MG diagnostic isidoro BI wo CAD. September 15, 2020, bilateral MG 3d work up w/cad YOGESH. The breast tissue is heterogeneously dense. This may lower the sensitivity of mammography. Finding #1: There is new skin thickening and architectural distortion in the upper outer quadrant, posterior position of the left breast, presumed post treatment changes. Finding #2: There are typically benign round calcifications in the right breast. Previous mammotome biopsy in the right breast. Results were given to the patient verbally at the time of the exam. ASSESSMENT: Probably benign, BI-RAD 3 RECOMMENDATION: Follow-up diagnostic mammogram of the left breast in 6 months.
== END | disposition home or self-care (01) ==
LOC: RADMAMWWP 10:55
PROVIDERS: ATTEND Surgery
DX: R92.1 Mammographic calcification found on diagnostic imaging of breast (principal); Z85.3 Personal history of malignant neoplasm of breast
CPT/HCPCS: 77062; 77066

== ENCOUNTER → 2021-09-22 | Outpatient (CLI) | payer BC ==
[2021-09-22 10:01] VITALS: BP 168/103; PULSE 70; RESP 18; TEMP 98.5
--- NOTE | 2021-09-22 11:18 | P.PN ---
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 Shady Núñez regarding bilateral mammographic abnormalities in her breast. She underwent a bilateral mammogram on . This revealed microcalcifications adjacent to spiculated 1 cm mass in the left breast. In the right breast there was some asymmetry noted. She subsequently underwent a diagnostic study of the breast which revealed in the left breast a spiculated mass in the upper outer quadrant as well as a group of pleomorphic calcifications. In the right breast there was some asymmetry noted. An ultrasound of both breasts were performed. Ultrasound in the right revealed a mixed lesion at the 4 o'clock position and on the left revealed the spiculated mass lesion. The recommendation as per radiology was for ultrasound core biopsy of the right breast, and after review with radiology stereotactic core biopsy of 2 sites in the left breast. The patient does not feel any lumps masses or nodules of concern in either breast. She was however complaining of bilateral breast pain. Patient stated that she has been having the discomfort for several months. She believes it is most likely perimenopausal in nature. She is not complaining of any nipple discharge or skin changes. The pain is deep bruise-like discomfort and is only present with palpation. She is not complaining of any recent infection or trauma in the breast. She has never had surgery on her breasts before. This is her first mammogram. The patient was having perimenopausal symptoms and was considering bioidentical hormone therapy. She was recommended to undergo a mammogram and this is the reason the mammogram was performed. Bilateral breast core biopsies were performed on . Left breast revealed invasive ductal carcinoma grade 2 which was ER/[place] positive HER-2/honey negative. Right breast core biopsy on the same date revealed fibrocystic change with apocrine metaplasia. The patient subsequently underwent a Oncotype DX test the score was 24 this lady's a 10% risk of distant recurrence at 9 years and absolute chemotherapy benefit of less than 1%. She also underwent genetic nayla ting which was negative. She underwent a bilateral breast MRI which revealed only the area of concern in the left breast. The disease was not noted to be multifocal nor was it noted to have anything of concern in the right breast. The patient underwent a left breast lumpectomy and SNB on 11-30-20. Tumor size 1 cm, margins negative and 4 nodes all negative. She completed radiation therapy in [place], 20 treatments. She chose not to do any hormone therapy. She was going to have letrazole. 06-30-21 She does not complain of any new lumps masses or nodules of concern in either breast. Her last bilateral mammogram was on 10-14-20. She completed her radiation therapy in February 2021. She has chosen not to do hormone therapy. 09-16-21 Patient had a bilateral mammogram on 09-16-21. This was BIRAD 3 and repeat left breast mammogram in 6 months recommended. The patient has not noted any changes of concern in either breast at this time. She did not have any chemotherapy. She did not have any hormonal therapy she opted to have this. Caffeine: 2 cups of coffee per day Nicotine: Negative Chocolate: Daily hormones: Is not using any at the present time Family history: Father: Lung cancer Hormonal history: Menarche: 12 , age at first : 26, breast fed: no periods irregular for the last 3 months BDP: no Surgical history: spleenectomy: trauma right ovary removed; cyst Medical History: HTN Social History: Nicotine: Former smoker stopped 15 years ago Alcohol: Rare Drugs: negative - Constitutional Constitutional: Denies chills, Denies fever - EENT Eyes: denies blurred vision, denies pain Ears: bilateral: decreased hearing, deny: tinnitus Ears, nose, mouth and throat: Denies headache, Denies sore throat - Breasts Breasts: bilateral: as per HPI - Cardiovascular Cardiovascular: Denies chest pain, Denies shortness of breath, now HTN - Respiratory Respiratory: Denies cough - Gastrointestinal Gastrointestinal: Denies abdominal pain, Denies diarrhea, Denies nausea, Denies vomiting - Genitourinary (Female) Genitourinary: Denies dysuria, Denies hematuria - Menstruation Menstruation: Reports cycle variable - Musculoskeletal Musculoskeletal: Denies myalgias - Integumentary Integumentary: Denies pruritus, Denies rash - Neurological Neurological: Denies numbness, Denies weakness - Psychiatric Psychiatric: Denies anxiety, Denies depression - Endocrine Endocrine: Denies fatigue, Denies weight change - Hematologic/Lymphatic Comment: none - Allergic/Immunologic Allergic/Immunologic: Reports as per HPI Objective - Vital Signs Vital signs: Vital Signs Temp 98.5 F 09/22/21 09:58 Pulse 70 09/22/21 09:58 Resp 18 09/22/21 09:58 BP 168/103 09/22/21 09:58 Pulse Ox 100 09/22/21 09:58 Intake & Output 09/21/21 09/22/21 09/22/21 18:59 06:59 18:59 Weight 79.379 kg - Exam BMI 29.1 - Constitutional General appearance: Present: cooperative - EENT Eyes: Present: EOMI ENT: Present: hearing grossly normal - Neck Neck: Present: normal ROM - Respiratory Respiratory: bilateral: CTA - Cardiovascular Heart sounds: normal: S1, S2 - Integumentary Integumentary: Present: normal turgor - Musculoskeletal Musculoskeletal: Present: gait normal - Psychiatric Psychiatric: Present: A&O x's 3, appropriate affect, intact judgment & insight - Additional findings Additional findings: Breast Exam: BRA: 38B inpsection: grade 2 ptosis bilateral palpation: right breast: Multi-positional exam fibrocystic changes no dominant masses or nodules of concern Right axilla: No adenopathy of concern Left breast: Multi-positional exam lateral 3 to 4:00 area postop changes with firmness but no dominant masses or nodules of concern Left axilla: No adenopathy of concern Assessment and Plan Assessment: Impression: Stage IA left breast cancer diagnosed 10-14-20; no evidence of recurrence mammogram 09-16-21, BIRAD 3 repeat in 6 months left breast HTN Plan: repeat left breast 6 months follow up radiation oncology follow up after mammogram in 6 months follow up sooner any questions or concerns CC: Dr. Núñez
== END ==
LOC: WWCWWP 09:51
PROVIDERS: ATTEND Surgery
DX: Z08 Encounter for follow-up examination after completed treatment for malignant neoplasm (principal); Z85.3 Personal history of malignant neoplasm of breast; I10 Essential (primary) hypertension; Z87.891 Personal history of nicotine dependence; Z88.5 Allergy status to narcotic agent

== ENCOUNTER → 2022-03-20 | Outpatient (CLI) | payer BC ==
--- NOTE | 2022-03-20 13:39 | MM ---
Reason for Exam: Follow-up at short interval from prior study. Last screening mammogram was performed 6 month(s) ago. Patient History: Menarche at age 12. First Full-Term at age 25. Right ovary removed at age 44. Breast cancer, left, age 50. Previous chest radiation therapy at age 50. 11/30/2020, Lumpectomy on the Left side. 11/30/2020, Malignant Core Biopsy on the left side. 10/14/2020, Benign Core Biopsy on the right side. 10/14/2020, Malignant Core Biopsy on the left side. Last menstrual period: 03/13/2022 Prior Study Comparison: 09/15/2020 Bilateral Screening Mammogram, [facility]. 09/15/2020 Bilateral Diagnostic Mammogram, [facility]. 09/15/2020 Bilateral Diagnostic Ultrasound, [facility]. 10/14/2020 Bilateral Diagnostic Mammogram, [facility]. 11/01/2020 Bilateral Diagnostic Breast MRI, [facility]. 09/16/2021 Bilateral Diagnostic Mammogram, [facility]. Tissue Density: Left: The breast tissue is heterogeneously dense. This may lower the sensitivity of mammography. Findings: Analyzed By CAD. Postsurgical posttreatment changes redemonstrated posterior upper-outer quadrant left breast. Overall skin thickening and trabecular changes are similar. Ongoing short interval follow-up to assess for evolving posttreatment change recommended. Overall Assessment: Probably benign, BI-RAD 3 Management: Diagnostic Mammogram of both breasts in 6 months. In time for the patient's annual exam. Patient should continue monthly self breast exams. Results were given to the patient verbally at the time of exam. Electronically signed and approved by: Shantell Robb M.D. Radiologist
== END | disposition home or self-care (01) ==
LOC: RADMAMWWP 12:55
PROVIDERS: ATTEND Surgery
DX: R92.8 Other abnormal and inconclusive findings on diagnostic imaging of breast (principal); Z90.721 Acquired absence of ovaries, unilateral
CPT/HCPCS: 77061; 77065

== ENCOUNTER → 2022-03-23 | Outpatient (CLI) | payer BC ==
[2022-03-23 14:30] VITALS: BP 162/92; PULSE 93; RESP 17; TEMP 97.9
--- NOTE | 2022-03-23 14:50 | P.PN ---
Subjective Progress Note Date: 03/23/22 Principal diagnosis: left breast stage IA invasive ductal cancer breast stage IA invasive ductal cancer Kenyetta is a 50-year-old white female seen in consultation for Dr. Shady Núñez regarding bilateral mammographic abnormalities in her breast. She underwent a bilateral mammogram on . This revealed microcalcifications adjacent to spiculated 1 cm mass in the left breast. In the right breast there was some asymmetry noted. She subsequently underwent a diagnostic study of the breast which revealed in the left breast a spiculated mass in the upper outer quadrant as well as a group of pleomorphic calcifications. In the right breast there was some asymmetry noted. An ultrasound of both breasts were performed. Ultrasound in the right revealed a mixed lesion at the 4 o'clock position and on the left revealed the spiculated mass lesion. The recommendation as per radiology was for ultrasound core biopsy of the right breast, and after review with radiology stereotactic core biopsy of 2 sites in the left breast. The patient does not feel any lumps masses or nodules of concern in either breast. She was however complaining of bilateral breast pain. Patient stated that she has been having the discomfort for several months. She believes it is most likely perimenopausal in nature. She is not complaining of any nipple discharge or skin changes. The pain is deep bruise-like discomfort and is only present with palpation. She is not complaining of any recent infection or trauma in the breast. She has never had surgery on her breasts before. This is her first mammogram. The patient was having perimenopausal symptoms and was considering bioidentical hormone therapy. She was recommended to undergo a mammogram and this is the reason the mammogram was performed. Bilateral breast core biopsies were performed on . Left breast revealed invasive ductal carcinoma grade 2 which was ER/[place] positive HER-2/honey negative. Right breast core biopsy on the same date revealed fibrocystic change with apocrine metaplasia. The patient subsequently underwent a Oncotype DX test the score was 24 this lady's a 10% risk of distant recurrence at 9 years and absolute chemotherapy benefit of less than 1%. She also underwent genetic testing which was negative. She underwent a bilateral breast MRI which revealed only the area of concern in the left breast. The disease was not noted to be multifocal nor was it noted to have anything of concern in the right breast. The patient underwent a left breast lumpectomy and SNB on 11-30-20. Tumor size 1 cm, margins negative and 4 nodes all negative. She completed radiation therapy in [place], 20 treatments. She chose not to do any hormone therapy. She was going to have letrazole. 06-30-21 She does not complain of any new lumps masses or nodules of concern in either breast. Her last bilateral mammogram was on 10-14-20. She completed her radiation therapy in February 2021. She has chosen not to do hormone therapy. 09-16-21 Patient had a bilateral mammogram on 09-16-21. This was BIRAD 3 and repeat left breast mammogram in 6 months recommended. The patient has not noted any changes of concern in either breast at this time. She did not have any chemotherapy. She did not have any hormonal therapy she opted to have this. 03-23-22 Alex is a 51-year-old white female who is status post left breast lumpectomy and sentinel node biopsy on . Tumor size was 1 cm margins were negative and 4 nodes were removed all were negative. She completed radiation therapy in [place] 20 treatments. She chose not to do hormone therapy. Patient has not noted any changes of concern in either breast at this time. Caffeine: 2 cups of coffee per day Nicotine: Negative Chocolate: Daily hormones: Is not using any at the present time Family history: Father: Lung cancer Hormonal history: Menarche: 12 , age at first : 26, breast fed: no periods irregular for the last 3 months BDP: no Surgical history: spleenectomy: trauma right ovary removed; cyst Medical History: HTN Social History: Nicotine: Former smoker stopped 15 years ago Alcohol: Rare Drugs: negative - Constitutional Constitutional: Denies chills, Denies fever - EENT Eyes: denies blurred vision, denies pain Ears: bilateral: decreased hearing, deny: tinnitus Ears, nose, mouth and throat: Denies headache, Denies sore throat - Breasts Breasts: bilateral: as per HPI - Cardiovascular Cardiovascular: Denies chest pain, Denies shortness of breath, now HTN - Respiratory Respiratory: Denies cough - Gastrointestinal Gastrointestinal: Denies abdominal pain, Denies diarrhea, Denies nausea, Denies vomiting - Genitourinary (Female) Genitourinary: Denies dysuria, Denies hematuria - Menstruation Menstruation: Reports cycle variable - Musculoskeletal Musculoskeletal: Denies myalgias - Integumentary Integumentary: Denies pruritus, Denies rash - Neurological Neurological: Denies numbness, Denies weakness - Psychiatric Psychiatric: Denies anxiety, Denies depression - Endocrine Endocrine: Denies fatigue, Denies weight change - Hematologic/Lymphatic Comment: none - Allergic/Immunologic Allergic/Immunologic: Reports as per HPI Objective - Vital Signs Vital signs: Vital Signs Temp 97.9 F 03/23/22 14:28 Pulse 93 03/23/22 14:28 Resp 17 03/23/22 14:28 BP 162/92 03/23/22 14:28 Pulse Ox 98 03/23/22 14:28 FiO2 Intake & Output 03/22/22 03/23/22 03/23/22 18:59 06:59 18:59 Weight 79.379 kg - Constitutional General appearance: Present: cooperative - EENT Eyes: Present: EOMI - Neck Neck: Present: normal ROM - Respiratory Respiratory: bilateral: CTA - Cardiovascular Rhythm: regular Heart sounds: normal: S1, S2 - Integumentary Integumentary: Present: normal turgor - Musculoskeletal Musculoskeletal: Present: gait normal - Psychiatric Psychiatric: Present: A&O x's 3, appropriate affect, intact judgment & insight - Additional findings Additional findings: Breast examination: Bra: 38B Inspection: Left breast slightly smaller than right breast, grade 2 ptosis bilateral, well-healed scar left breast from prior surgery Palpation: Right breast: Multiple positional exam fibrocystic changes no dominant masses or notches of concern Right axilla: No adenopathy of concern Left Breast: Multiple positional exam lateral aspect the 4 o'clock position postop changes which are getting less firm from her prior exam No dominant masses or nodules of concern Left axilla: No adenopathy of concern Assessment and Plan Assessment: Impression: Patient status post left breast lumpectomy and sentinel node biopsy on . This is for a T1 N0 M0 left breast invasive ductal carcinoma. She chose not to take any hormone therapy Recent left breast mammogram [id number] BIRADS 3 Plan: Repeat bilateral mammogram in 6 months Patient to follow up at that time Patient has declined hormone therapy CC: Dr. Shady Núñez
== END | disposition home or self-care (01) ==
LOC: WWCWWP 13:37
PROVIDERS: ATTEND Surgery
DX: Z53.9 Procedure and treatment not carried out, unspecified reason (principal)

== ENCOUNTER → 2023-03-30 | Outpatient (CLI) | payer BC ==
[2023-03-30 16:01] VITALS: BP 150/91; PULSE 64; RESP 17; TEMP 97.9
--- NOTE | 2023-03-30 16:23 | P.PN ---
Subjective Progress Note Date: 03/30/23 left breast stage IA invasive ductal cancer 2020 [id number] Alex is a 52-year-old white female who is status post left breast lumpectomy and sentinel node biopsy on . Tumor size was 1 cm margins were negative and 4 nodes were removed all were negative. She completed radiation therapy in [place] 20 treatments. She chose not to do hormone therapy. No chemotherapy. Does not feel any new lumps masses or nodules of concern in either breast. She is not complaining of any nipple discharge or skin changes. Bilateral mammogram 09-22-22 BIRAD 2 Caffeine: 2 cups of coffee per day Nicotine: Negative Chocolate: Daily hormones: Is not using any at the present time Family history: Father: Lung cancer Hormonal history: Menarche: 12 , age at first : 26, breast fed: no periods irregular for the last 3 months BDP: no Surgical history: spleenectomy: trauma right ovary removed; cyst Medical History: HTN Social History: Nicotine: Former smoker stopped 15 years ago Alcohol: Rare Drugs: negative - Constitutional Constitutional: Denies chills, Denies fever - EENT Eyes: denies blurred vision, denies pain Ears: bilateral: decreased hearing, deny: tinnitus Ears, nose, mouth and throat: Denies headache, Denies sore throat - Breasts Breasts: bilateral: as per HPI - Cardiovascular Cardiovascular: Denies chest pain, Denies shortness of breath, now HTN - Respiratory Respiratory: Denies cough - Gastrointestinal Gastrointestinal: Denies abdominal pain, Denies diarrhea, Denies nausea, Denies vomiting - Genitourinary (Female) Genitourinary: Denies dysuria, Denies hematuria - Menstruation Menstruation: Reports cycle variable - Musculoskeletal Musculoskeletal: Denies myalgias - Integumentary Integumentary: Denies pruritus, Denies rash - Neurological Neurological: Denies numbness, Denies weakness - Psychiatric Psychiatric: Denies anxiety, Denies depression - Endocrine Endocrine: Denies fatigue, Denies weight change - Hematologic/Lymphatic Comment: none - Allergic/Immunologic Allergic/Immunologic: Reports as per HPI Objective - Vital Signs Vital signs: Vital Signs Temp 97.9 F 03/30/23 15:57 Pulse 64 03/30/23 15:57 Resp 17 03/30/23 15:57 BP 150/91 03/30/23 15:57 Pulse Ox 98 03/30/23 15:57 FiO2 Intake & Output 03/29/23 03/30/23 03/30/23 18:59 06:59 18:59 Weight 77.111 kg - Constitutional General appearance: Present: cooperative - EENT Eyes: Present: EOMI ENT: Present: hearing grossly normal - Neck Neck: Present: normal ROM - Respiratory Respiratory: bilateral: CTA - Cardiovascular Rhythm: regular Heart sounds: normal: S1, S2 - Integumentary Integumentary: Present: normal turgor - Musculoskeletal Musculoskeletal: Present: gait normal - Psychiatric Psychiatric: Present: A&O x's 3, appropriate affect, intact judgment & insight - Additional findings Additional findings: Breast examination: Bra: 38B Inspection: Left breast slightly smaller than right breast, grade 2 ptosis bilateral, well-healed scar left breast from prior surgery Palpation: Right breast: Multi-positional exam fibrocystic changes no dominant masses or nodules of concern Right axilla: No adenopathy of concern Left Breast: Multi-positional exam lateral aspect the 4 o'clock position postop changes which are getting less firm from her prior exam No dominant masses or nodules of concern Left axilla: No adenopathy of concern Assessment and Plan Assessment: Impression: Patient status post left breast lumpectomy and sentinel node biopsy on . This is for a T1 N0 M0 left breast invasive ductal carcinoma. She choose not to take any hormone therapy bilateral mammogram 09-22-22 BIRAD 2 Plan: Repeat bilateral mammogram in September 2023 follow up in September Patient has declined hormone therapy CC: Dr. Shady Núñez
== END ==
LOC: WWCWWP 15:34
PROVIDERS: ATTEND Surgery
DX: C50.912 Malignant neoplasm of unspecified site of left female breast (principal); I10 Essential (primary) hypertension; L76.82 Other postprocedural complications of skin and subcutaneous tissue; Z87.891 Personal history of nicotine dependence; Z88.5 Allergy status to narcotic agent; Z79.899 Other long term (current) drug therapy

== ENCOUNTER → 2023-09-24 | Outpatient (CLI) | payer BC ==
--- NOTE | 2023-09-24 11:36 | MM ---
Reason for Exam: Follow-up at short interval from prior study. Last screening mammogram was performed 12 month(s) ago. Patient History: Menarche at age 12. First Full-Term at age 25. Right ovary removed at age 44. Breast cancer, left, age 50. Previous DCIS pathology result. Previous chest radiation therapy at age 50. 11/30/2020, Lumpectomy on the Left side. 11/30/2020, Malignant Core Biopsy on the left side. 10/14/2020, Benign Core Biopsy on the right side. 10/14/2020, Malignant Core Biopsy on the left side. Tissue Density: The breasts are heterogeneously dense, which may obscure small masses. Findings: Analyzed By CAD. Postsurgical and posttreatment change left breast. Subtle calcifications posterior upper outer quadrant at the site are not noted but become less defined on magnification views, probably early fat necrosis. Short interval follow-up recommended. Microclip right breast from prior biopsy. Otherwise, no significant change. Overall Assessment: Probably benign, BI-RAD 3 Management: Diagnostic Mammogram of the left breast in 6 months. Results were given to the patient verbally at the time of exam. Patient should continue monthly self-breast exams. A clinical breast exam by your physician is recommended on an annual basis. This exam should not preclude additional follow-up of suspicious palpable abnormalities. Electronically signed and approved by: Shantell Robb M.D. Radiologist
== END | disposition home or self-care (01) ==
LOC: RADMAMWWP 10:56
PROVIDERS: ATTEND Surgery
DX: R92.333 Mammographic heterogeneous density, bilateral breasts (principal); R92.1 Mammographic calcification found on diagnostic imaging of breast; Z85.3 Personal history of malignant neoplasm of breast; Z98.890 Other specified postprocedural states
CPT/HCPCS: 77062; 77066

== ENCOUNTER → 2023-09-27 | Outpatient (CLI) | payer BC ==
--- NOTE | 2023-09-27 13:18 | P.PN ---
Subjective Progress Note Date: 09/27/23 left breast stage IA invasive ductal cancer 2020 [id number] Alex is a 52-year-old white female who is status post left breast lumpectomy and sentinel node biopsy on . Tumor size was 1 cm margins were negative and 4 nodes were removed all were negative. She completed radiation therapy in [place] 20 treatments. She chose not to do hormone therapy. No chemotherapy. Does not feel any new lumps masses or nodules of concern in either breast. She is not complaining of any nipple discharge or skin changes. Bilateral mammogram 09-24-23 personally reviewed BIRAD 3; subtle calcifications left breast upper outer quadrant at the site are less defined and make views probably early fat necrosis short interval follow-up in 6 months Caffeine: 2 cups of coffee per day Nicotine: Negative Chocolate: Daily hormones: Is not using any at the present time Family history: Father: Lung cancer Hormonal history: Menarche: 12 , age at first : 26, breast fed: no periods irregular for the last 3 months BDP: no Surgical history: spleenectomy: trauma right ovary removed; cyst Medical History: HTN Social History: Nicotine: Former smoker stopped 15 years ago Alcohol: Rare Drugs: negative - Constitutional Constitutional: Denies chills, Denies fever - EENT Eyes: denies blurred vision, denies pain Ears: bilateral: decreased hearing, deny: tinnitus Ears, nose, mouth and throat: Denies headache, Denies sore throat - Breasts Breasts: bilateral: as per HPI - Cardiovascular Cardiovascular: Denies chest pain, Denies shortness of breath, now HTN - Respiratory Respiratory: Denies cough - Gastrointestinal Gastrointestinal: Denies abdominal pain, Denies diarrhea, Denies nausea, Denies vomiting - Genitourinary (Female) Genitourinary: Denies dysuria, Denies hematuria - Menstruation Menstruation: Reports cycle variable - Musculoskeletal Musculoskeletal: Denies myalgias - Integumentary Integumentary: Denies pruritus, Denies rash - Neurological Neurological: Denies numbness, Denies weakness - Psychiatric Psychiatric: Denies anxiety, Denies depression - Endocrine Endocrine: Denies fatigue, Denies weight change - Hematologic/Lymphatic Comment: none - Allergic/Immunologic Allergic/Immunologic: Reports as per HPI Objective - Vital Signs Vital signs: Vital Signs Temp 97.8 F 09/27/23 12:54 Pulse 71 09/27/23 12:54 Resp 18 09/27/23 12:54 BP Pulse Ox 100 09/27/23 12:54 FiO2 Intake & Output 09/26/23 09/27/23 09/27/23 18:59 06:59 18:59 Weight 79.379 kg - Constitutional General appearance: Present: cooperative - EENT Eyes: Present: EOMI ENT: Present: hearing grossly normal - Neck Neck: Present: normal ROM - Respiratory Respiratory: bilateral: CTA - Cardiovascular Rhythm: regular Heart sounds: normal: S1, S2 - Integumentary Integumentary: Present: normal turgor - Musculoskeletal Musculoskeletal: Present: gait normal - Psychiatric Psychiatric: Present: A&O x's 3, appropriate affect, intact judgment & insight - Additional findings Additional findings: Breast examination: Bra: 38B Inspection: Left breast slightly smaller than right breast, grade 2 ptosis bilateral, well-healed scar left breast from prior surgery Palpation: Right breast: Multi-positional exam fibrocystic changes no dominant masses or nodules of concern Right axilla: No adenopathy of concern Left Breast: Multi-positional exam lateral aspect the 4 o'clock position postop changes which are getting less firm from her prior exam No dominant masses or nodules of concern Left axilla: No adenopathy of concern Assessment and Plan Assessment: Impression: Patient status post left breast lumpectomy and sentinel node biopsy on . This is for a T1 N0 M0 left breast invasive ductal carcinoma. She choose not to take any hormone therapy bilateral mammogram 09-24-23 BIR[facility] 3; repeat left breast mammogram in 6 months Plan: left breast mammogram in 6 months, follow up at that time bilatearl mammogram in September 2024 Patient has declined hormone therapy follow up radiation therapy CC: Dr. Shady Núñez
[2023-09-27 13:39] VITALS: PULSE 71; RESP 18; TEMP 97.8
== END ==
LOC: WWCWWP 12:33
PROVIDERS: ATTEND Surgery
DX: R92.8 Other abnormal and inconclusive findings on diagnostic imaging of breast (principal); C50.912 Malignant neoplasm of unspecified site of left female breast; Z98.890 Other specified postprocedural states; Z48.817 Encounter for surgical aftercare following surgery on the skin and subcutaneous tissue; Z88.5 Allergy status to narcotic agent; Z17.0 Estrogen receptor positive status [ER+]; Z87.891 Personal history of nicotine dependence; Z92.3 Personal history of irradiation; Z90.721 Acquired absence of ovaries, unilateral

== ENCOUNTER → 2024-03-31 | Outpatient (CLI) | payer BC ==
--- NOTE | 2024-03-31 14:05 | MM ---
Reason for Exam: Follow-up at short interval from prior study. Last screening mammogram was performed 6 month(s) ago. Patient History: Menarche at age 12. First Full-Term at age 25. Right ovary removed at age 44. Postmenopausal. Breast cancer, left, age 50. Previous DCIS pathology result. Previous chest radiation therapy at age 50. 11/30/2020, Lumpectomy on the Left side. 11/30/2020, Malignant Core Biopsy on the left side. 10/14/2020, Benign Core Biopsy on the right side. 10/14/2020, Malignant Core Biopsy on the left side. Prior Study Comparison: 03/20/2022 Left MG 3D diag mammo w/cad LT, [facility]. 09/22/2022 Bilateral MG 3D diag mammo w/cad [facility], [facility]. 09/24/2023 Bilateral MG 3D diag mammo w/cad YOGESH, [facility]. Tissue Density: Left: The breasts are heterogeneously dense, which may obscure small masses. Findings: Analyzed By CAD. The pattern appears stable. Postsurgical distortion appears stable in the upper outer posterior left breast. No significant interval change. No suspicious groups of microcalcifications, spiculated or lobular masses, architectural distortion or other secondary signs of malignancy are mammographically apparent. Overall Assessment: Benign, BI-RAD 2 Management: Diagnostic Mammogram of both breasts in 6 months. A negative mammogram report should not preclude additional follow up of suspicious palpable abnormalities. Patient should continue monthly self breast exam. A clinical breast exam by your physician is recommended on an annual basis and results should be correlated with mammographic findings. Note on Debbie scores and lifetime risk: 1. A Debbie score greater than 3% is considered moderate risk. If this is the case, consider specialist referral to assess eligibility for a risk reducing agent. 2. If overall lifetime risk for the development of breast cancer is 20% or higher, the patient may qualify for future screening with alternating mammogram and breast MRI. [facility], , 03/31/2024 1:27 PM. Electronically signed and approved by: Martínez Taylor D.O. Radiologis
== END | disposition home or self-care (01) ==
LOC: RADMAMWWP 13:08
PROVIDERS: ATTEND Surgery
DX: C50.912 Malignant neoplasm of unspecified site of left female breast (principal); R92.333 Mammographic heterogeneous density, bilateral breasts; R92.8 Other abnormal and inconclusive findings on diagnostic imaging of breast; Z90.722 Acquired absence of ovaries, bilateral; Z78.0 Asymptomatic menopausal state; Z92.3 Personal history of irradiation
CPT/HCPCS: 77061; 77065

== ENCOUNTER → 2024-04-03 | Outpatient (CLI) | payer BC ==
--- NOTE | 2024-04-03 14:07 | P.PN ---
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 Tumor size was 1 cm margins were negative and 4 nodes were removed all were negative. She completed radiation therapy in [place] 20 treatments. She chose not to do hormone therapy. No chemotherapy. Does not feel any new lumps masses or nodules of concern in either breast. She is not complaining of any nipple discharge or skin changes. Bilateral mammogram 09-24-23 personally reviewed BIRAD 3; subtle calcifications left breast upper outer quadrant at the site are less defined and make views probably early fat necrosis short interval follow-up in 6 months; this was repeated on 03-31-24 BIRAD 2, personally reviewed. Caffeine: 2 cups of coffee per day Nicotine: Negative Chocolate: Daily hormones: Is not using any at the present time Family history: Father: Lung cancer Hormonal history: Menarche: 12 , age at first : 26, breast fed: no periods irregular for the last 3 months BDP: no Surgical history: spleenectomy: trauma right ovary removed; cyst Medical History: HTN Social History: Nicotine: Former smoker stopped 15 years ago Alcohol: Rare Drugs: negative - Constitutional Constitutional: Denies chills, Denies fever - EENT Eyes: denies blurred vision, denies pain Ears: bilateral: decreased hearing, deny: tinnitus Ears, nose, mouth and throat: Denies headache, Denies sore throat - Breasts Breasts: bilateral: as per HPI - Cardiovascular Cardiovascular: Denies chest pain, Denies shortness of breath, now HTN - Respiratory Respiratory: Denies cough - Gastrointestinal Gastrointestinal: Denies abdominal pain, Denies diarrhea, Denies nausea, Denies vomiting - Genitourinary (Female) Genitourinary: Denies dysuria, Denies hematuria - Menstruation Menstruation: Reports cycle variable - Musculoskeletal Musculoskeletal: Denies myalgias - Integumentary Integumentary: Denies pruritus, Denies rash - Neurological Neurological: Denies numbness, Denies weakness - Psychiatric Psychiatric: Denies anxiety, Denies depression - Endocrine Endocrine: Denies fatigue, Denies weight change - Hematologic/Lymphatic Comment: none - Allergic/Immunologic Allergic/Immunologic: Reports as per HPI Objective - Constitutional General appearance: Present: cooperative - EENT Eyes: Present: EOMI ENT: Present: hearing grossly normal - Neck Neck: Present: normal ROM - Respiratory Respiratory: bilateral: CTA - Cardiovascular Rhythm: regular Heart sounds: normal: S1, S2 - Integumentary Integumentary: Present: normal turgor - Musculoskeletal Musculoskeletal: Present: gait normal - Psychiatric Psychiatric: Present: A&O x's 3, appropriate affect, intact judgment & insight - Additional findings Additional findings: Breast examination: Bra: 38B Inspection: Left breast slightly smaller than right breast, grade 2 ptosis bilateral, well-healed scar left breast from prior surgery Palpation: Right breast: Multi-positional exam fibrocystic changes no dominant masses or nodules of concern Right axilla: No adenopathy of concern Left Breast: Multi-positional exam lateral aspect the 4 o'clock position postop changes which are getting less firm from her prior exam No dominant masses or nodules of concern Left axilla: No adenopathy of concern Assessment and Plan Assessment: Impression: Patient status post left breast lumpectomy and sentinel node biopsy on . This is for a T1 N0 M0 left breast invasive ductal carcinoma. She choose not to take any hormone therapy bilateral mammogram 09-24-23 BIRAD 3; repeat left breast mammogram in 6 months; repeat left breat mammogram on 03-31-24 BIRAD 2 Plan: Bilateral mammogram in 6 months, follow up at that time bilateral mammogram in September 2024 Patient has declined hormone therapy follow up radiation therapy follow up sooner any concerns CC: Dr. Shady Núñez
[2024-04-03 14:16] VITALS: BP 143/88; PULSE 95; RESP 17; TEMP 97.4
== END ==
LOC: WWCWWP 13:37
PROVIDERS: ATTEND Surgery
DX: R92.8 Other abnormal and inconclusive findings on diagnostic imaging of breast (principal); Z48.817 Encounter for surgical aftercare following surgery on the skin and subcutaneous tissue; C50.912 Malignant neoplasm of unspecified site of left female breast; Z17.21 Progesterone receptor positive status; Z17.0 Estrogen receptor positive status [ER+]; Z88.5 Allergy status to narcotic agent; Z87.891 Personal history of nicotine dependence

== ENCOUNTER → 2024-10-30 | Outpatient (CLI) | payer BC ==
[2024-10-30 11:25] VITALS: BP 154/94; PULSE 77; RESP 17; TEMP 98.1
--- NOTE | 2024-10-30 11:33 | P.PN ---
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 Tumor size was 1 cm margins were negative and 4 nodes were removed all were negative. She completed radiation therapy in [place] 20 treatments. She chose not to do hormone therapy. No chemotherapy. Does not feel any new lumps masses or nodules of concern in either breast. She is not complaining of any nipple discharge or skin changes. Bilateral mammogram 10-16-24 personally reviewed [facility] 2; Caffeine: 2 cups of coffee per day Nicotine: Negative Chocolate: Daily hormones: Is not using any at the present time Family history: Father: Lung cancer Hormonal history: Menarche: 12 , age at first : 26, breast fed: no periods irregular for the last 3 months BDP: no Surgical history: spleenectomy: trauma right ovary removed; cyst Medical History: HTN Social History: Nicotine: Former smoker stopped 15 years ago Alcohol: Rare Drugs: negative - Constitutional Constitutional: Denies chills, Denies fever - EENT Eyes: denies blurred vision, denies pain Ears: bilateral: decreased hearing, deny: tinnitus Ears, nose, mouth and throat: Denies headache, Denies sore throat - Breasts Breasts: bilateral: as per HPI - Cardiovascular Cardiovascular: Denies chest pain, Denies shortness of breath, now HTN - Respiratory Respiratory: Denies cough - Gastrointestinal Gastrointestinal: Denies abdominal pain, Denies diarrhea, Denies nausea, Denies vomiting - Genitourinary (Female) Genitourinary: Denies dysuria, Denies hematuria - Menstruation Menstruation: Reports cycle variable - Musculoskeletal Musculoskeletal: Denies myalgias - Integumentary Integumentary: Denies pruritus, Denies rash - Neurological Neurological: Denies numbness, Denies weakness - Psychiatric Psychiatric: Denies anxiety, Denies depression - Endocrine Endocrine: Denies fatigue, Denies weight change - Hematologic/Lymphatic Comment: none - Allergic/Immunologic Allergic/Immunologic: Reports as per HPI Objective - Vital Signs Vital signs: Intake & Output 06/11/25 06/12/25 06/12/25 18:59 06:59 18:59 Weight 65.771 kg - Constitutional General appearance: Present: cooperative - EENT Eyes: Present: EOMI ENT: Present: hearing grossly normal - Neck Neck: Present: normal ROM - Respiratory Respiratory: bilateral: CTA - Cardiovascular Rhythm: regular Heart sounds: normal: S1, S2 - Integumentary Integumentary: Present: normal turgor - Musculoskeletal Musculoskeletal: Present: gait normal - Psychiatric Psychiatric: Present: A&O x's 3, appropriate affect, intact judgment & insight - Additional findings Additional findings: Breast examination: Bra: 38B Inspection: Left breast slightly smaller than right breast, grade 2 ptosis bilateral, well-healed scar left breast from prior surgery Palpation: Right breast: Multi-positional exam fibrocystic changes no dominant masses or nodules of concern Right axilla: No adenopathy of concern Left Breast: Multi-positional exam lateral aspect the 4 o'clock position postop changes which are getting less firm from her prior exam No dominant masses or nodules of concern Left axilla: No adenopathy of concern Assessment and Plan Assessment: Impression: Patient status post left breast lumpectomy and sentinel node biopsy on . This is for a T1 N0 M0 left breast invasive ductal carcinoma. She choose not to take any hormone therapy bilateral mammogram 09-24-23 BIRAD 3; repeat left breast mammogram in 6 months; repeat left breast mammogram on 03-31-24 BIRAD 2; bilateral mammogram on 10-16-24 BIRAD 2 Plan: follow up in 6 months bilateral mammogram in September 2025 Patient has declined hormone therapy follow up radiation therapy follow up sooner any concerns CC: Dr. Shady Núñez
== END ==
LOC: WWCWWP 11:16
PROVIDERS: ATTEND Surgery
DX: Z12.31 Encounter for screening mammogram for malignant neoplasm of breast (principal); Z87.891 Personal history of nicotine dependence; Z88.5 Allergy status to narcotic agent